=== PATIENT | female | born 1960 | race African-American/Black ===

== ENCOUNTER 2017-12-12 10:03 | Day surgery (SDC) | payer BC ==
[2017-12-12] MEDS ORDERED: HEPARIN SODIUM 1,000 UNIT/1ML VIAL IV ONE (10:53)
[2017-12-12] MEDS ORDERED: NICARDIPINE 100MCG/ML 10ML VIAL (CATH LAB) IV ONE (10:53)
[2017-12-12] MEDS ORDERED: NITROGLYCERIN 50MCG/ML 10ML VIAL (CATH LAB) IV ONE (10:53)
[2017-12-12] MEDS ORDERED: FENTANYL CITRATE/PF 50MCG/ML 2ML VIAL ONE (12:10)
[2017-12-12] MEDS ORDERED: MIDAZOLAM HCL 2 MG/2 ML VIAL ONE (12:10)
[2017-12-12] MEDS ORDERED: IOHEXOL-300 100 ML BOTTLE ONE (12:11)
[2017-12-12] MEDS ORDERED: LIDOCAINE HCL 1% 20ML VIAL (Pyxis) INJ ONE (12:11)
[2017-12-12] MEDS ORDERED: INSU100I28 SQ (13:03)
[2017-12-12] MEDS ORDERED: ASPI-864 PO (13:16)
[2017-12-12] MEDS ORDERED: METF500T4 PO (13:16)
[2017-12-12] MEDS ORDERED: AMLO10TA80 PO (13:16)
[2017-12-12] MEDS ORDERED: ROSU5TAB PO (13:16)
== END 2017-12-12 14:30 | disposition home or self-care (01) ==
LOC: CCL 10:03
PROVIDERS: ATTEND Specialist
DX: R94.39 Abnormal result of other cardiovascular function study (principal); I11.9 Hypertensive heart disease without heart failure; I20.0 Unstable angina; E78.5 Hyperlipidemia, unspecified; E11.9 Type 2 diabetes mellitus without complications; E66.9 Obesity, unspecified; Z79.4 Long term (current) use of insulin; Z79.82 Long term (current) use of aspirin; Z79.899 Other long term (current) drug therapy
CPT/HCPCS: 82962; 93458; 99152; 99153; C1769; C1887; C1893; J1644; J2250; J3010; J3490; Q9967

== ENCOUNTER 2018-05-29 06:32 | Emergency (ER) | payer BC ==
[~2018-05-29] VITALS: Ht 167.6 cm; Wt 72.0 kg
[~2018-05-29 06:32] MED LIST: AMLO10TA80 PO; ASPI-864 PO; INSU100I28 SQ; METF500T6 PO; ROSU5TAB PO
[2018-05-29 11:07] VITALS: BP 162/70
== END 2018-05-29 11:09 | disposition home or self-care (01) ==
LOC: ER 07:43
DX: L02.818 Cutaneous abscess of other sites (principal); I10 Essential (primary) hypertension; E11.9 Type 2 diabetes mellitus without complications
CPT/HCPCS: 99281